=== PATIENT | female | born 1970 ===

== ENCOUNTER 2017-12-23 21:27 | Emergency (ER) | payer OTHER ==
[~2017-12-23] VITALS: Ht 157.5 cm; Wt 96.6 kg
[2017-12-23 21:35] VITALS: BP 132/68
[2017-12-23] MEDS ORDERED: METHOCARBAMOL 750 MG TABLET ONE (22:26)
[2017-12-23] MEDS ORDERED: KETOROLAC 30 MG/1 ML ONE (22:26)
[2017-12-23] MEDS ORDERED: METHOCARBAMOL 750 MG TABLET PO ONE (22:30)
[2017-12-23] MEDS ORDERED: KETOROLAC 30 MG/1 ML IM ONE (22:30)
== END 2017-12-23 23:31 | disposition home or self-care (01) ==
LOC: ED 23:05
DX: S39.012A Strain of muscle, fascia and tendon of lower back, initial encounter (principal); G89.29 Other chronic pain; X58.XXXA Exposure to other specified factors, initial encounter; Y93.89 Activity, other specified; Y92.89 Other specified places as the place of occurrence of the external cause; Y99.8 Other external cause status
CPT/HCPCS: 96372; 99283; J1885